=== PATIENT | male | born 1935 | race Caucasian/White ===

== ENCOUNTER → 2018-04-29 09:46 | Outpatient (CLI) | payer MEDICARE, SELFPAY ==
--- NOTE | 2018-04-29 10:12 | US_ITS ---
STUDY: ABDOMINAL ULTRASOUND - RIGHT UPPER QUADRANT REASON FOR VISIT: Male, 83 years old. Abnormal laboratory values TECHNIQUE: Ultrasound evaluation of the right upper quadrant was performed with real-time and static mcleod-scale imaging. TECHNICAL QUALITY: Limited. Examination limited by bowel gas. COMPARISON: None. FINDINGS: Liver: The liver measures 13.8 cm. There is normal echogenicity of the liver. Left hepatic lobe is partially obscured by bowel gas. The bile ducts are within normal limits. There is hepatic color flow. The direction of portal flow is hepatopetal. There is no demonstrated mass lesion. Gallbladder: Normal distended gallbladder. The gallbladder wall measures 2.0 mm. There is a negative sonographic Moya's sign. There is no pericholecystic fluid. There are no gallstones. Common Bile Duct (C.B.D.): The common bile duct measures 1.6 mm. Pancreas: There is nonvisualization of the pancreas. Right Kidney: Normal size of the right kidney. The right kidney measures 9.8 cm. Normal renal cortex. The right cortex measures 1.3 cm. There is no demonstrated renal mass or cyst. There is no right hydronephrosis. US/Liver IMPRESSION: Normal right upper quadrant ultrasound examination. Electronically Signed: Saul Jack MD at 11:27 EST , Service support ,
[2018-05-01 09:21] LABS: Vitamin B12 608 pg/mL (211-911)
[2018-05-02 16:10] LABS: Alkaline Phosphatase, Serum 90 IU/L (39-117); Bone Fraction 43 % (12-68); HEPATITIS B SURFACE AG Negative (Negative); Hepatitis A AB, Total Positive (Negative); Hepatitis A IgM Antibody Negative (Negative); Hepatitis B Core AB IgM Negative (Negative); Hepatitis B Core Ab Total Negative (Negative); Hepatitis C Ab 0.2 s/co ratio (0.0-0.9); Liver Fraction 57 % (13-88)
[2018-05-03 11:52] LABS: Hep B Surface Antibodies Non Reactive (.); Intestinal Fraction 0 % (0-18)
== END ==
PROVIDERS: Family Provider Internal Medicine; PCP Internal Medicine; Referring Provider Nurse Practitioner; Visit Provider Nurse Practitioner
DX: R74.0 Nonspecific elevation of levels of transaminase and lactic acid dehydrogenase [LDH] (principal)
CPT/HCPCS: 36415; 76705; 82247; 82607; 82746; 84075; 84080; 86704; 86705; 86706; 86708; 86709; 86803; 87340

== ENCOUNTER → 2022-05-06 | Outpatient (CLI) | payer MEDICARE, SELFPAY ==
--- NOTE | 2022-05-06 14:20 | CDU_ITS ---
Reason For Study: neurological deficit present Rt. Velocities/BP Lt. Velocities/BP Prox CCA 96.0/11.3 cm/sec. Prox CCA 97.4/10.2 cm/sec. Mid CCA 80.6/10.2 cm/sec. Mid CCA 91.2/11.4 cm/sec. Dist CCA 81.7/11.3 cm/sec. Dist CCA 67.9/11.4 cm/sec. Prox ICA 51.9/7.7 cm/sec. Prox ICA 50.9/9.9 cm/sec. Mid ICA 113.8/20.6 cm/sec. Mid ICA 61.3/11.6 cm/sec. Dist ICA 91.9/15.2 cm/sec. Dist ICA 72.7/14.2 cm/sec. Rt. ICA/CCA = 1.4. Lt. ICA/CCA = .8. Prox ECA 189.4/9.4 cm/sec. Prox ECA 130.2/4.2 cm/sec. Rt. Vert. 122.9/13.3 cm/sec. Lt. Vert. 99.8/18.8 cm/sec. Right Extracranial There is homogeneous, smooth atherosclerotic plaque noted in the right common carotid artery. There is heterogeneous, irregular atherosclerotic plaque noted in the right internal carotid artery. There is heterogeneous, irregular atherosclerotic plaque noted in the right external carotid artery. Antegrade flow is noted in the right vertebral artery. Left Extracranial There is homogeneous, smooth atherosclerotic plaque noted in the left common carotid artery. There is homogeneous, smooth atherosclerotic plaque noted in the left internal carotid artery. There is intimal thickening but no significant atherosclerotic plaque noted in the left external carotid artery. Antegrade flow is noted in the left vertebral artery. Procedure Carotid Duplex 03018. This is a Carotid Duplex examination using B-mode, color flow and specral Doppler. The exam was diagnostic. Exam performed in department. VL/Carotid Duplex Ultrasound Interpretation Summary Mild (<50%) stenosis right extracranial internal carotid. Mild (<50%) stenosis left extracranial internal carotid. Flow within the vertebral arteries is antegrade bilaterally. Ordering Physician: Natasha Olivo Performed By: Jc Cano RVT
--- NOTE | 2022-05-06 14:21 | ECHOD_ITS ---
Reason For Study: NEUROLOGICAL DEFICIR Procedure This was a 2D Doppler, Color Flow transthoracic echocardiogram. Exam performed in department. Left Ventricle Normal size and thickness. The left ventricular ejection fraction is 55 %. Stage 3 diastolic dysfunction. Right Ventricle Normal right ventricle. Atria The left atrium is mildly enlarged. Normal right atrium. Bubble contrast study is negative for PFO/ASD. Mitral Valve Moderately severe (3+) mitral valve insufficiency. Tricuspid Valve Moderate (2+) tricuspid valve insufficiency. Pulmonary artery systolic pressure is 60 mmHg. Severe pulmonary hypertension. Aortic Valve Normal aortic valve. Pulmonic Valve The pulmonic valve is not well visualized. Great Vessels The aortic root is not well visualized. Pericardium/Pleural No pericardial effusion. Medication 22 gauge I.V. with prn adaptor inserted into right arm. Performed a rapid injection of agitated mix of 9 cc saline and 1cc air to assess for atrial septal defect. MMode/2D Measurements & Calculations RVDd: 4.1 cm Ao root diam: 3.6 cm LAV(MOD-sp4): 84.7 ml LVAd ap4: 30.8 cm2 LVAd ap2: 30.4 cm2 SV(MOD-sp4): 50.0 ml LVLd ap4: 7.1 cm LVLd ap2: 7.6 cm EDV(MOD-sp4): 106.7 ml EDV(MOD-sp2): 103.9 ml EDV(sp4-el): 112.5 ml EDV(sp2-el): 103.0 ml LVAs ap4: 20.6 cm2 LVAs ap2: 21.7 cm2 LVLs ap4: 6.1 cm LVLs ap2: 6.8 cm ESV(MOD-sp4): 56.7 ml ESV(MOD-sp2): 58.0 ml ESV(sp4-el): 59.1 ml ESV(sp2-el): 58.7 ml EF(MOD-sp4): 46.9 % EF(MOD-sp2): 44.2 % EF(sp4-el): 47.5 % SV(MOD-sp2): 46.0 ml SV(sp4-el): 53.4 ml LA A4 area: 25.0 cm2 LA dimension(2D): 4.6 cm RA A4 area: 17.8 cm2 Time Measurements MV dec time: 0.20 sec Doppler Measurements & Calculations MV E max rubin: 91.5 cm/sec Lat Peak E' Rubin: 6.9 cm/sec Med Peak E' Rubin: 4.0 cm/sec MV A max rubin: 31.1 cm/sec E/E' lat: 13.3 E/E' med: 22.6 MV E/A: 2.9 MV V2 max: 106.6 cm/sec MV dec slope: 451.9 cm/sec2 Ao V2 max: 117.0 cm/sec MV max P.5 mmHg Ao max P.5 mmHg MV V2 mean: 47.5 cm/sec Ao V2 mean: 78.4 cm/sec MV mean P.2 mmHg Ao mean P.8 mmHg MV V2 VTI: 35.4 cm Ao V2 VTI: 28.3 cm AV (velocity ratio): 0.71 LV V1 max: 81.9 cm/sec MR max rubin: 553.2 cm/sec PA V2 max: 102.0 cm/sec LV V1 max P.7 mmHg MR max P.4 mmHg PA V2 mean: 71.3 cm/sec LV V1 mean P.4 mmHg LV V1 mean: 54.4 cm/sec LV V1 VTI: 20.0 cm TR max rubin: 353.9 cm/sec TR max P.1 mmHg ECHO/Echo Complete Interpretation Summary The left ventricular ejection fraction is 55 %. Stage 3 diastolic dysfunction. The left atrium is mildly enlarged. Moderately severe (3+) mitral valve insufficiency. Moderate (2+) tricuspid valve insufficiency. Severe pulmonary hypertension. Bubble contrast study is negative for PFO/ASD. Ordering Physician: Candice Marrero Referring Physician: CANDICE MARRERO Performed By: Lenore Lopez RCS
== END | disposition home or self-care (01) ==
PROVIDERS: PCP Internal Medicine; Visit Provider Internal Medicine
DX: R29.818 Other symptoms and signs involving the nervous system (principal); I27.20 Pulmonary hypertension, unspecified; I34.0 Nonrheumatic mitral (valve) insufficiency; I65.23 Occlusion and stenosis of bilateral carotid arteries
CPT/HCPCS: 93306; 93880

== ENCOUNTER 2022-06-03 13:30 | Outpatient (RCR) | payer MEDICARE, SELFPAY ==
--- NOTE | 2022-05-14 09:57 | HP.OTEVAL_ITS ---
Patient's Visit Information DOLORES BRUNSON is a 87 year old M, referred to Occupational Therapy by Dr. Natasha Olivo DO, with a diagnosis of CVA, debility. Date of Evaluation: 05/13/22 Occupational Therapist: Virginie Lyons, ARTIR/Vibha, CHT - Subjective This 87 year old male was seen for OT with dx of CVA left UE weakness. pt states stroke happened in 2004. pt lives with her has concerns with frequent falls 13 in last year. pt ambulating with quad cane- has radames walker at home. pt states he has noticed a decline in his strength and this has limited safe functional mobility- left side affected from stroke. does assist with bathing and dressing as pt needs. - ADLs Comments: pt has stool in old deep bathtub. assist with bathing and dressing - ROM Shoulder: right UE WNL left no active shoulder flex/abd. Elbow: right WNL left no active motion Forearm: right WNL left no active motion Wrist: right WNL left no active motion ROM Comments: noted left shoulder protraction/retraction with trunk rotation. flexion tone of digits only. no initiation of digit or thumb ext. PRON is WFL - Strength Shoulder: right 7# left unable Elbow: right 15# left unable Smoking Pipe Maker: right 70# left unable Lateral Pinch: right 13# left unable Tripod Pinch: right 10# left unable Strength Comments: pt demo weakness of right side limiting functional mobility - Sensation Sensation Comments: denies - Quick DASH-Disab of Arm,Shoulder& Hand Quick DASH Score: 63.6350 - Goals Goal:: pt will demo a increase in right UE strength by 10# to increase use of right UE with functional tsf by d/c Goal:: pt and family will demo understanding of performing PRON of left UE to increase circulation, decrease tone and limit skin issues by d/c Goal:: pt will demo understanding of using cloth or sponge in left hand to prevent thumb flexion into the palm of hand and limit skin breakdown by d.c - Rehabilitation General Assessment: pt demo with decline in functional strength increasing risk of falls and increase need of assist with . Pt would benefit from skilled OT services to ed. pt on PROM of left UE, bracing to prevent skin break down, and strengthening to right UE to increase pts overall strength for increase safe functional mobility. pt and pts family agree with POC. Rehabilitation Potential: Good - Anticipated Interventions A/AAROM/PROM, Strengthening, Neuro Reeducation, ADL Training, Education re assistive Equipment, Education re Diagnosis, Caregiver Training, Home Program - Visit Plan Frequency: Every Other Week Duration: 6 Weeks General Plan: family and pt does only want HEP. agreed to attend a few visits until HEP is established. today gave PROM HEP. next visit give PRE for right UE TEXT: Thank you for the opportunity to evaluate your patient. For Medicare and Medicare HMO plans, please review the plan of care and approve it. It will need to be FAXED BACK to us at [phone] for Medicare purposes. Please let me know if there are questions or concerns regarding this plan of care. Physician Signature: Date:
--- NOTE | 2022-05-14 10:59 | HP.PTEVAL_ITS ---
Patient's Visit Information DOLORES BRUNSON is a 87 year old M referred to Physical Therapy by Dr. Natasha Olivo DO with a diagnosis of LLE weakness, CVA with new deficits. Date of Evaluation: 05/13/22 Physical Therapist: Joseph Arevalo DPT - Visit Plan Frequency: 2x /Week Duration: 4 Weeks Plan: LE strengthening and gait progress. Pt. wanted to work on HEP I for a few weeks then follow back up. Pt. given LE strengthening with handouts. - Subjective Pt. is here today for his initial evaluation with diagnosis of LLE weakness, CVA with new deficits. Pt. reports having a CVA ~17 years ago. He has more recently been falling more at home, 3 times in the past few months. Pt. reports my left leg just does not work some times. Pt. lives with his spouse who helps with most mobility, but he does his dressing. He does walk with a quad cane at home, but only short distances. Spouse does walk with him. He does not drive. He does not have much use of his LUE, has some knee extension, but not much use of his ankle. Pt. wears an AFO throughout the day. He does not leave the home much, only appointments. Pt. is hopeful to increase his strength in order to get back to walking and more I at home. - Objective POSTURE: Pt. has flexed posture instance, increased R lateral lean in sitting and standing. LUE at side. Pt. uses quad cane for stability. PALPATION: Pt. has no pain with palpation of BLEs. NEURO: Pt. has reports normal sensation in BLEs, he does have decreased DTR of L ankle and patella. ROM: Pt. has tight B HS restricting full knee extension of B knees. MMT: RLE 5/5 throughout. LLE: ankle: DF 0/5, PF 3/5. knee: ext 3/5, flexion 3-/5; hip: flexion 3/5, abd 3-/5, ER 3-/5. Core strength- poor+. GAIT: Pt. ambulates with small base quad cane. Pt. has decreased L leg step length and decreased LLE control. His left leg bared wt. well with out sudden weakness noted. He ambulated 23' prior to reporting need to sit down. - Balance/Special Test Scores Lower Extremity Functional Score: 9 - Goals Goal 1:: LTG: Pt. to be I with HEP for LE and core strengthening. Goal Time Frame: 4-6 Weeks Goal 2:: STG: Pt. to be able to transfer from bed to chair and rise form chair TERRENCE with use of quad cane. Goal Time Frame: 2-4 Weeks Goal 3:: LTG: Pt. to be able to ambulate 50'+ with quad cane TERRENCE. Goal Time Frame: 4-6 Weeks Goal 4:: LTG: pt. to have increased strength by 1/2 grade throughout BLEs. Goal Time Frame: 4-6 Weeks - Rehabilitation Potential Physical Therapy Diagnosis: Pt. has signs and symptoms consistent with LLE weakness, CVA with new deficits. Pt. has marked loss of LLE DF, hip flexion, hip abd, knee ext and knee flexion. From testing and length since surgery, I do not expect much change in strength of L knee flexion, L ankle, but the rest of his LLE I believe can get stronger, but most likely no to the strength of the R side. I would recommend that he strengthening his core, hips and quad on the L side in order to increase his stability and ability to walk. Rehabilitation Potential: Good - Anticipated Interventions Patient/Client Instruction: Educate patient on: Condition, Plan of Care, Risk Factors, Benefits of Fitness Program For the Purpose of:: To facilitate caregiver knowledge, To improve self management, To prevent re-injury, To improve ability to perform tasks related to life management, To improve tolerance to ADL's Therapeutic Exercise to Include: Strength training, Power training, Postural training, Flexibilty training, Gait and locomotor training For the Purpose of:: To improve muscle performance and motor function, To im prove ability to perform ADL's, To improve gait and locomotor functions, To improve health of tissue, To decrease soft tissue restriction, To increase flexibility/ROM Thank you for the opportunity to evaluate your patient. For Medicare and Medicare HMO plans, please review the plan of care and approve it. It will need to be FAXED BACK to us at [phone] for Medicare purposes. For Medicare only, by signing this I certify the plan of care. Please let me know if there are questions or concerns regarding this plan of care. Physician Signature: Date:
== END 2022-06-03 19:00 | disposition home or self-care (01) ==
LOC: PT 13:30
PROVIDERS: PCP Internal Medicine; Referring Provider Internal Medicine; Visit Provider Internal Medicine
DX: I69.319 Unspecified symptoms and signs involving cognitive functions following cerebral infarction (principal); I69.344 Monoplegia of lower limb following cerebral infarction affecting left non-dominant side
CPT/HCPCS: 97162; 97166